=== PATIENT | female | born 1970 | race African-American/Black ===

== ENCOUNTER 2024-08-11 23:07 | Emergency (ER) | payer SELFPAY ==
[~2024-08-11] VITALS: Ht 182.9 cm; Wt 105.0 kg
[2024-08-11 23:11] VITALS: BP 178/111; PULSE 77; RESP 16; TEMP 98; O2SAT 99
[2024-08-12] MEDS ORDERED: IBUP-2028 MT (00:34)
[2024-08-12] MEDS ORDERED: ACET-2708 MT (00:34)
== END 2024-08-12 01:06 | disposition home or self-care (01) ==
LOC: ER 23:07
DX: S00.83XA Contusion of other part of head, initial encounter (principal); E11.9 Type 2 diabetes mellitus without complications; W18.39XA Other fall on same level, initial encounter; Y93.89 Activity, other specified; Y92.39 Other specified sports and athletic area as the place of occurrence of the external cause; Y99.8 Other external cause status
CPT/HCPCS: 99283